=== PATIENT | female | born 1975 | race Caucasian/White ===

== ENCOUNTER 2019-12-08 07:15 | Inpatient (IN) | payer BC ==
[~2019-12-08 07:15] MED LIST: cefOXitin 2 GM Vial ONE
[2019-12-08] MEDS ORDERED: Scopolamine 1.5 MG Transdermal Patch TOP SCH (09:45)
[2019-12-08] MEDS ORDERED: Celecoxib 200 MG Cap PO ONE (09:45)
[2019-12-08] MEDS ORDERED: Dextrose 5%-Lactated Ringers 1,000 ML IV SCH ×2 (09:45→16:30)
[2019-12-08] MEDS ORDERED: Albuterol 8 GM Inhaler INH ONE (10:00)
[2019-12-08] MEDS ORDERED: fentaNYL 250 MCG/5 ML SDV ONE ×2 (10:38→13:30)
[2019-12-08] MEDS ORDERED: Ondansetron 4 MG/2 ML SDV ONE (10:39)
[2019-12-08] MEDS ORDERED: Succinylcholine 200 MG/10 ML MDV ONE (10:39)
[2019-12-08] MEDS ORDERED: Dexamethasone 4 MG/ML SDV ONE (10:39)
[2019-12-08] MEDS ORDERED: Propofol 200 MG/20 ML SDV ONE (10:39)
[2019-12-08] MEDS ORDERED: Neostigmine Methylsulfate 1 MG/ML 5 ML Syringe ONE (10:39)
[2019-12-08] MEDS ORDERED: Glycopyrrolate 0.2 MG/ML 5 ML MDV ONE (10:39)
[2019-12-08] MEDS ORDERED: Rocuronium 50 MG/5 ML Vial ONE (10:39)
[2019-12-08] MEDS ORDERED: Albuterol 8 GM Inhaler (PTOM) INH ONE (11:00)
[2019-12-08] MEDS ORDERED: Acetaminophen Soln 650 MG/20.3 ML UD Cup PO ONE (11:00)
[2019-12-08] MEDS ORDERED: Ondansetron 4 MG/2 ML SDV IVPUSH ONE (11:30)
[2019-12-08] MEDS ORDERED: Ketamine 500 MG/5 ML MDV IV SCH (11:30)
[2019-12-08] MEDS ORDERED: Ketamine 50 MG in Sodium Chloride 0.9% 49.5 ML IV SCH (11:30)
[2019-12-08] MEDS ORDERED: MAGNESIUM SULFATE IV ONE (12:00)
[2019-12-08] MEDS ORDERED: SODIUM CHLORIDE 0.9% IV ONE (12:00)
[2019-12-08] MEDS: cefOXitin 2 GM in Sodium Chloride 0.9% 50 ML IV ONE ×2 (12:29→12:42)
[2019-12-08] MEDS ORDERED: Labetalol 20 MG/4 ML Syringe ONE (14:26)
[2019-12-08] MEDS ORDERED: fentaNYL 100 MCG/2 ML SDV IVPUSH ONE (15:18)
[2019-12-08] MEDS ORDERED: hydrOXYzine HCL 100 MG/2 ML SDV IM ONE (15:18)
[2019-12-08] MEDS: Lactated Ringers 1,000 ML IV SCH (16:40)
[2019-12-08] MEDS: Cyclobenzaprine 10 MG Tab PO PRN (16:40)
[2019-12-08] MEDS ORDERED: HYDROmorphone 0.5 MG/0.5 ML Syringe IVPUSH PRN (16:48)
[2019-12-08] MEDS ORDERED: Insulin Lispro 100 Unit/ML 3 ML KwikPen SUBCUT PRN (17:00)
[2019-12-08] MEDS ORDERED: diphenhydrAMINE 50 MG/ML SDV IVPUSH PRN (17:00)
[2019-12-08] MEDS ORDERED: Labetalol 20 MG/4 ML Syringe IVPUSH PRN (17:00)
[2019-12-08] MEDS ORDERED: 50% Dextrose in Water 50 ML Syringe IVPUSH PRN (17:00)
[2019-12-08] MEDS ORDERED: Metoclopramide 10 MG/2 ML SDV IVPUSH PRN (17:00)
[2019-12-08] MEDS ORDERED: Albuterol/Ipratropium 3.0-0.5 MG/3 ML Neb Soln INH PRN (17:00)
[2019-12-08] MEDS ORDERED: Acetaminophen 500 MG Tab PO PRN (17:00)
[2019-12-08] MEDS ORDERED: Ondansetron 4 MG/2 ML SDV IVPUSH PRN (17:00)
[2019-12-08] MEDS ORDERED: Calcium Gluconate 10% 1 GM/10 ML SDV IVPUSH PRN (17:00)
[2019-12-08] MEDS ORDERED: hydrOXYzine HCL 100 MG/2 ML SDV IM PRN (17:00)
[2019-12-08] MEDS ORDERED: Glucagon,Human Recombinant 1 MG Vial IM PRN (17:00)
[2019-12-08] MEDS ORDERED: Pantoprazole 40 MG Vial IVPUSH SCH (18:00)
[2019-12-08] MEDS ORDERED: MVI, Adult with Vitamin K 10 ML, Thiamine 200 MG, Chromium/Copper/Mang/Selen/Zn 1 ML in... IV SCH ×4 (18:00)
[2019-12-08] MEDS: cefOXitin 2 GM in Sodium Chloride 0.9% 50 ML IV SCH (18:29)
[2019-12-08] MEDS: Heparin Sodium 5,000 Units/ML Vial SUBCUT SCH (20:51)
[2019-12-08] MEDS: Acetaminophen 500 MG Tab PO SCH ×2 (20:51→21:03)
[2019-12-08] MEDS: Albuterol/Ipratropium 3.0-0.5 MG/3 ML Neb Soln INH SCH (20:57)
[2019-12-09] MEDS: HYDROmorphone 1 MG/ML Syringe IV PRN ×3 (00:46→05:11)
[2019-12-09] MEDS: cefOXitin 2 GM in Sodium Chloride 0.9% 50 ML IV SCH ×4 (00:51→18:23)
[2019-12-09] MEDS: Acetaminophen 500 MG Tab PO SCH ×3 (05:11→19:33)
[2019-12-09] MEDS: Albuterol/Ipratropium 3.0-0.5 MG/3 ML Neb Soln INH SCH ×4 (07:45→21:30)
[2019-12-09] MEDS ORDERED: Ondansetron 4 MG Tab.DIS PO PRN (08:07)
[2019-12-09] MEDS ORDERED: ALPRAZolam 0.25 MG Tab PO PRN (08:19)
[2019-12-09] MEDS ORDERED: Albuterol 8 GM Inhaler INH PRN (08:19)
[2019-12-09] MEDS ORDERED: Pseudoephedrine 30 MG Tab PO PRN (08:19)
[2019-12-09] MEDS: Celecoxib 200 MG Cap PO SCH ×2 (08:55→21:29)
[2019-12-09] MEDS ORDERED: Lisinopril 20 MG Tab PO SCH (09:00)
[2019-12-09] MEDS ORDERED: Pantoprazole 40 MG Vial IVPUSH SCH (09:00)
[2019-12-09] MEDS ORDERED: SCOPOLAMINE PATCH CHECK TOP SCH (09:00)
[2019-12-09] MEDS ORDERED: Chlorthalidone 25 MG Tab PO SCH (09:00)
[2019-12-09] MEDS ORDERED: Citalopram 20 MG Tab PO SCH (09:00)
[2019-12-09] MEDS ORDERED: Venlafaxine 37.5 MG Cap.ER PO SCH (09:00)
[2019-12-09] MEDS: Levothyroxine 100 MCG Tab PO SCH (09:08)
[2019-12-09] MEDS: Cyclobenzaprine 10 MG Tab PO PRN ×2 (10:00→19:35)
--- NOTE | 2019-12-09 11:52 | CRLCR ---
INDICATION: Post bariatric surgery. TECHNIQUE: Two views of the abdomen and pelvis, 1 obtained immediately after drinking 50 mL of oral contrast, and the 2nd obtained approximately 15 minutes later. COMPARISON: None available. IMPRESSION: Free intraperitoneal air is presumably postsurgical in nature. On the initial image, contrast is seen in the distal esophagus, as well is in the gastric pouch in this patient who is status post presumed Fani-en-Y gastric bypass. Contrast is also seen in the proximal small bowel, just distal to the gastroenteric anastomosis. On this single frontal view, there is no convincing evidence of extraluminal contrast to suggest a leak or perforation. On the delayed image, contrast is seen within a small bowel loop in the left-side of the abdomen. Again, on this frontal view there is no convincing evidence of extraluminal contrast to suggest a leak or perforation. Surgical drain is noted in the left upper quadrant. Dictated by Alvarado Akbar MD @ Dec 09 2019 11:44AM Signed by Dr. Alvarado Akbar @ Dec 09 2019 11:50AM
[2019-12-09] MEDS: Heparin Sodium 5,000 Units/ML Vial SUBCUT SCH ×2 (11:54→19:35)
[2019-12-09] MEDS: hydrOXYzine HCl 25 MG Tab PO PRN ×2 (13:03→19:34)
--- NOTE | 2019-12-09 15:26 | PN ---
DATE OF SERVICE: 12/09/2019 SUBJECTIVE: Shellie is postop day 1. Her upper GI was normal. Vital signs have been stable. Pain has been controlled. She has no other questions or concerns. OBJECTIVE: GENERAL: Shellie Valverde is a pleasant 44-year-old female. She is alert and oriented. VITAL SIGNS: TPR is 96.7, 98, 16, blood pressure 123/71. HEENT: Negative. NECK: Supple. HEART: Regular rate and rhythm. LUNGS: Clear. ABDOMEN: Dressings dry and intact. Abdominal binder is on. LEXI drain put out 210 mL of a light pink drainage. EXTREMITIES: Without peripheral edema. ASSESSMENT: Laparoscopic gastric bypass surgery, liver biopsy, repair of paraesophageal diaphragmatic hernia, and excision of mediastinal lipoma. For morbid obesity, hepatomegaly, diaphragmatic hernia, and mediastinal lipoma. Date of procedure: 12/08/2019. Surgeon: Ronal Van MD PLAN: 1. Decrease IV of lactated Ringer's to 100 mL per hour. 2. Discontinue D5 LR. 3. Step 2 gastric bypass diet without cereal. 4. Discontinue Accu-Cheks. 5. Dressing off. May shower. 6. Zofran ODT 4 mg sublingual q.4 hours and p.r.n. nausea. 7. Home meds restarted. Effexor 37.5 mg p.o. daily. Will check with her primary care to see if they need to have that dose adjusted because of the extended release and there is no combination of medication that can be made. Pseudoephedrine 30 mg q.8 hours p.r.n. congestion, lisinopril 20 mg p.o. daily, levothyroxine 300 mcg p.o. daily, Celexa 40 mg p.o. daily, and chlorthalidone 25 mg p.o. daily. Communication order to drink 3 med cups one q.20 minutes equaling 3 an hour. Record at bedside to make sure to get in enough fluids. 8. We will evaluate p.r.n. or in a.m. Trish William PA-C /[id number]
[2019-12-09] MEDS ORDERED: Pantoprazole 40 MG Delayed-Release Granules 1 Packet PO SCH (16:00)
[2019-12-09] MEDS ORDERED: MVI, Adult with Vitamin K 10 ML, Thiamine 200 MG, Chromium/Copper/Mang/Selen/Zn 1 ML in... IV SCH ×8 (16:00→18:00)
[2019-12-10] MEDS: Lactated Ringers 1,000 ML IV SCH (02:52)
[2019-12-10] MEDS: Acetaminophen 500 MG Tab PO SCH (04:05)
[2019-12-10] MEDS: hydrOXYzine HCl 25 MG Tab PO PRN (07:47)
[2019-12-10] MEDS: Cyclobenzaprine 10 MG Tab PO PRN (07:48)
[2019-12-10] MEDS: Heparin Sodium 5,000 Units/ML Vial SUBCUT SCH (07:51)
[2019-12-10] MEDS: Levothyroxine 100 MCG Tab PO SCH (07:51)
[2019-12-10] MEDS: Albuterol/Ipratropium 3.0-0.5 MG/3 ML Neb Soln INH SCH (08:15)
[2019-12-10] MEDS ORDERED: Magnesium Hydroxide 400 MG/5 ML Susp 30 ML Cup PO ONE (09:00)
[2019-12-10] MEDS ORDERED: Cyanocobalamin (Vitamin B12) 1,000 MCG/ML SDV IM ONE (09:00)
--- NOTE | 2019-12-12 10:21 | DISCH ---
FINAL DIAGNOSES: 1. Morbid obesity. 2. Hepatomegaly. 3. Paraesophageal diaphragmatic hernia. 4. Mediastinal lipoma. 5. History of hypertension. 6. History of asthma. 7. Prediabetes. 8. History of depression. OPERATIVE PROCEDURE: Done on 12/07, diagnostic laparoscopy with: 1. Laparoscopic Fani-en-Y gastric bypass. 2. Eris-Cut needle liver biopsy. 3. Repair of paraesophageal diaphragmatic hernia. 4. Excision of mediastinal lipoma. SUMMARY: This is a 44-year-old female presenting with longstanding morbid obesity and increasingly significant comorbidities. After preoperative evaluation and discussion, she wished to proceed with a gastric bypass procedure, which was done on the date of admission along with the other procedures as outlined above. Postoperatively, she has had no significant problems. She is planning to avoid any narcotic, she will be sent home on her usual medications other than we will hold the Ozempic and measure her blood sugars t.i.d. and bring her log into the clinic. Her blood sugars over the last two days have been in the 130 to 140 range. Otherwise, she will be sent home with the Atarax 25 mg q.4 hours p.r.n. pain, #30, and Flexeril 10 mg p.o. q.8 hours p.r.n. muscle spasm, #30. These seem to be helping with regard to the discomfort and should be continuing on her Celebrex as well. Should be instructed to stay on a Step 2 diet until the first appointment as well as having her hold vitamin supplements until after the first appointment as well and then be following up with Trish William at [facility] on 12/16/2019.
--- NOTE | 2019-12-13 15:20 | OR ---
DATE OF PROCEDURE: 12/08/2019 SURGEON: Ronal Van MD PREOPERATIVE DIAGNOSIS: Morbid obesity. POSTOPERATIVE DIAGNOSES: 1. Morbid obesity. 2. Marked hepatomegaly. 3. Paraesophageal diaphragmatic hernia. 4. Mediastinal lipoma. OPERATIVE PROCEDURES: Diagnostic laparoscopy with: 1. Laparoscopic Fani-en-Y gastric bypass with long limb gastroenterostomy (07399). 2. Eris-Cut needle liver biopsy (12763). 3. Repair of paraesophageal diaphragmatic hernia (42623). 4. Excision of mediastinal lipoma ([id number]). ANESTHESIA: General. [facility] PROGRAM COORDINATOR: Trish William PA-C INDICATIONS FOR PROCEDURE: This is a 44-year-old female presenting with longstanding morbid obesity and increasingly significant comorbidities. After preoperative evaluation and discussion, she wished to proceed with a gastric bypass procedure. Potential risks of procedure including bleeding, infection, injury to underlying viscera, and leaks from various GI tract closures following bowel obstruction over time as well as possibility of cardiopulmonary, septic, or hemorrhagic complications leading to were discussed, and the patient wishes to proceed. DETAILS OF PROCEDURE: The patient was taken to the operating room, placed in a supine position. After general endotracheal anesthesia was induced, she was converted to a lithotomy position, and the abdomen prepped and draped. 15 cm inferior and 5 cm left of the xiphoid process, transverse incision was made, and peritoneal cavity entered under direct vision with an Optiview trocar, inflated to 15 mmHg of CO2. Laparoscope was then reinserted. No underlying trocar insertion site injuries were seen. Following this, 5 additional trocars were placed across the upper and mid abdomen, and bilateral transversus abdominis plane blocks were placed. Liver was evaluated and noted to be markedly enlarged and fatty infiltrated. Eris-Cut needle biopsies were obtained from left lobe of liver. Minimal bleeding from the biopsy sites was controlled with electrocautery. The omentum was then divided in the midline up to the level of the transverse colon. This allowed identification of the small bowel and ligament of Treitz. Small bowel was then traced out 150 cm distal to that point where it was divided transversely with AJRON stapler. Small bowel was then traced out an additional 150 cm where the [id number] enteroenterostomy was accomplished with internal firing of the Endo-JARON 60 mm stapler. Common opening was then closed transversely with the same stapler, and the angles anastomosed and mesenteric defect approximated with some 0 Ethibond stitch along with 4 mL of fibrin sealant. Divided end of Fani limb was then from the mesentery for a few centimeters, which allowed antecolic positioning of the Fani limb up to the level of the gastroesophageal junction without tension. The liver was then retracted anteriorly. The patient was noted to have a moderate-sized paraesophageal diaphragmatic hernia. This contained some omentum within it and some perigastric fat. This was reduced. The peritoneum overlying and was incised and reflected downward. During the course of the dissection, a mediastinal lipoma was encountered. This was excised to facilitate more adequate crural repair. Crura was then approximated anteriorly with 0 Ethibond sutures, reinforced with PTFE pledgets. The gastrointestinal balloon catheter was then inflated 15 mL and pulled up snugly against the EG junction. Gastric wall over the apex of the balloon was then marked with electrocautery and balloon catheter deflated and pulled up in the esophagus. The lesser omental tissue adjacent to the gastric cardia was incised allowing the dissection behind the gastric cardia. Pouch formation was initiated with transverse firing of the JARON stapler at the level of cauterized vinicius in the gastric cardia, and the pouch was then completed with additional firings of JARON stapler up to and through the angle of His. Upon completion of the pouch, both staple lines were noted to be intact. The anvil of a 25 mm EEA stapler was attached to a [place] sump-tube and brought down through the mouth and taken out through a small opening in the gastric pouch, allowing the anvil likewise to be pulled down to within the gastric pouch. The divided end of Fani limb was then opened, and main body of the EEA stapler passed several centimeters in the lumen of small bowel, brought up the anvil and united with it, thus creating the gastrojejunostomy. Upon removal of the stapler, double donuts of mucosa were noted within it. Small bowel was closed off with a vascular staple line. Gastrojejunostomy was reinforced with some 3-0 Vicryl seromuscular stitch along with fibrin sealant. A leak test was accomplished with injection of 120 mL of air in the gastric pouch while it was submerged with cefoxitin- containing saline solution. No leaks were identified. A single Frank-Robreto drain was taken out through the left lateral trocar site and positioned adjacent to the gastrojejunostomy, from there up into the splenic fossa. Trocars were then sequentially removed. Peritoneal cavity deflated. Incisions were closed with 4-0 Vicryl skin stitch, which was also used to affix the drain. The patient was taken to the recovery room in satisfactory condition. Physician sales assistant displays, Trish William, played an essential role in assisting in this case, helping to position the patient, retract structures as needed, and as well as suturing and cutting sutures when indicated. Her presence improved patient safety and decreased the operative time. Ronal Van MD /[id number]
== END 2019-12-10 10:15 | disposition home or self-care (01) | DRG 403 ==
LOC: EDSTATUS 07:15 → JP.SDS 09:48 → JP.MS 09:48
PROVIDERS: ADMIT Surgery; ATTEND Surgery
PROC: 0D164ZA Bypass Stomach to Jejunum, Percutaneous Endoscopic Approach (ICD-10-PCS; principal; 2019-12-08)
PROC: 0FB24ZX Excision of Left Lobe Liver, Percutaneous Endoscopic Approach, Diagnostic (ICD-10-PCS; 2019-12-08)
PROC: 0BQT4ZZ Repair Diaphragm, Percutaneous Endoscopic Approach (ICD-10-PCS; 2019-12-08)
PROC: 0JB63ZZ Excision of Chest Subcutaneous Tissue and Fascia, Percutaneous Approach (ICD-10-PCS; 2019-12-08)
DX: E66.01 Morbid (severe) obesity due to excess calories (principal); R16.0 Hepatomegaly, not elsewhere classified; K44.9 Diaphragmatic hernia without obstruction or gangrene; D17.1 Benign lipomatous neoplasm of skin and subcutaneous tissue of trunk; F32.9 Major depressive disorder, single episode, unspecified; R73.03 Prediabetes; J45.30 Mild persistent asthma, uncomplicated; I10 Essential (primary) hypertension; H65.191 Other acute nonsuppurative otitis media, right ear; Z68.43 Body mass index [BMI] 50.0-59.9, adult; Z90.49 Acquired absence of other specified parts of digestive tract; Z85.850 Personal history of malignant neoplasm of thyroid; Z79.890 Hormone replacement therapy; Z79.899 Other long term (current) drug therapy; Z88.5 Allergy status to narcotic agent; Z91.040 Latex allergy status; Z91.018 Allergy to other foods
CPT/HCPCS: 36415; 74240; 82962; 86850; 86900; 86901; 88304; 88305; 88307; 88313; 94640; 94762; A9270-GY; C9113; J0171; J0330; J0694; J1100; J1170; J1644; J1815; J2405; J2704; J2710; J2795; J3010; J3410; J3411; J3475; J3490; J7050; J7120; J7121; J7620-GY

== ENCOUNTER 2019-12-16 07:07 | Inpatient (IN) | payer BC ==
[2019-12-16] MEDS ORDERED: Famotidine 20 MG/2 ML SDV IV ONE (07:30)
--- NOTE | 2019-12-16 13:10 | US ---
Head Neck Soft Tissue Bi CLINICAL HISTORY: Left neck pain FINDINGS: Real-time images are obtained through the left neck were patient describes pain. Doppler images show normal flow in the jugular vein and carotid arteries. There is no mass or abnormal fluid collections. There is a small lymph node in the left neck which is nonspecific. IMPRESSION: No mass or abnormal fluid collections
--- NOTE | 2019-12-16 13:16 | NM ---
Lung Ventilation Only CLINICAL HISTORY: Elevated d-dimer, chest pain FINDINGS: Ventilation study was performed. Patient inhaled 1 mCi of technetium 99m DTPA via nebulizer. There is a uniform distribution of radionuclide throughout both lung hannon with no segmental or lobar defects. Perfusion study was attempted. The 4.1 mCi of technetium 99m MAA were attempted to be infused. The first attempt the infiltrated. A second attempt was performed with similar results. IMPRESSION: SALESPERSON FURNITURE lung scan was attempted Perfusion study was unsuccessful due to lack of venous access Normal ventilation scan
[2019-12-16] MEDS ORDERED: Acetaminophen 325 MG Tab PO PRN (13:22)
[2019-12-16] MEDS ORDERED: Acetaminophen 650 MG Supp RECTAL PRN (13:23)
[2019-12-16] MEDS ORDERED: Lactated Ringers 1,000 ML IV ONE (13:30)
[2019-12-16] MEDS ORDERED: Pantoprazole 40 MG Vial IV SCH (14:00)
[2019-12-16] MEDS ORDERED: Albuterol 8 GM Inhaler INH PRN (15:24)
[2019-12-16] MEDS ORDERED: ALPRAZolam 0.25 MG Tab PO PRN (15:24)
[2019-12-16] MEDS ORDERED: Pseudoephedrine 30 MG Tab PO PRN (15:24)
--- NOTE | 2019-12-16 15:45 | PCM.HP.2 ---
H&P History of Present Illness - General Date of Service: 12/16/19 Source of Information: Patient History Limitations: Reports: No Limitations - History of Present Illness Initial Comments - Free Text/Narative: Shellie states that on 12/14/2019 she started to develop more pain in her left trocar site and the area above it. States it feels like a bulge. Pain is a 3 - 4 /10 on a pain scale. Feels burpy. BMs are regular. No dyphagia. 2. Feel like a boa constrictor is around lower rib cage and is unable to take a deep breath without pain. feels short of breath. Unable to finish a sneeze. Not able to get her incentive inspirometer up to the level she got it a few days before. Coughing at night - her Mom states she can hear her in the next room. 3. Has a sore and swollen throat since surgery. reports that this happens everytime she is intubated and has to take Dexamethasone in order for the swelling to go down. States she discussed this with the anesthesia before surgery and he forgot to give her any. Liquids go down fine but pudding and yogurt go down slowly and hard to swallow. Has no other signs or symptoms. Shellie had a CT Scan of her Abdomen and it was negative. After her CT Scan she reported she was getting more short of breath and her chest hurt to take a deep breath. Kimberlyn Garza was 1860. Unable to do a CT Scan of Lungs to rule out PE because of allergy to iodine - patient stating "she ". Bilateral Doppler US of Legs was negative. Attempted to do a VQ Scan but both IVs infiltrated and contrast was insufficient to get an accurate test. Today Shellie reports "severe left shoulder pain". No one recalls her mentioning this yesterday but pain is severe a 8/10. She is holding her shoulder. Pain is so severe she states she is unable to walk because it takes her out at the knees. An US of her Left Shoulder and Neck was obtained to rule out any clot formation and it was negative. Consulted with Ronal Van MD and Wm Stanislaw DENIS in radiology and decision was to admit to hospital Give prophylactic treatment for allergic reaction to CT Contrast and do CT in the AM. Shellie was admitted to [facility]. - Related Data Allergies/Adverse Reactions: Allergies Allergy/AdvReac Type Severity Reaction Status Date / Time codeine Allergy Severe Anaphylactic Verified 12/16/19 12:30 Shock fish oil Allergy Severe Anaphylactic Verified 12/16/19 12:30 Shock hydrocodone Allergy Severe Anaphylactic Verified 12/16/19 12:30 Shock oxycodone Allergy Severe Anaphylactic Verified 12/16/19 12:30 Shock tomato Allergy Severe Anaphylactic Verified 12/16/19 12:30 Shock banana Allergy Hives Verified 12/16/19 12:30 iodine Allergy Hives Verified 12/16/19 12:30 ketorolac [From Toradol] Allergy Hives Verified 12/16/19 12:30 latex Allergy Rash Verified 12/16/19 12:30 javier flavor Allergy Hives Verified 12/16/19 12:30 povidone-iodine Allergy Hives Verified 12/16/19 12:30 sumatriptan Allergy Headache Verified 12/16/19 12:30 gluten AdvReac Nausea and Verified 12/16/19 12:30 Vomiting sodium chloride AdvReac Vomiting Verified 12/16/19 13:51 ALC-Bitter stop flavor Allergy Hives Uncoded 12/08/19 10:27 propyl glyco Home Medications: Home Meds ALPRAZolam [Alprazolam] 0.25 mg PO BID PRN 04/22/19 [History] Citalopram Hydrobromide [Celexa] 40 mg PO DAILY 04/22/19 [History] Albuterol Sulfate [Albuterol Sulfate Hfa] 1 - 2 puff INH Q4HR PRN 12/06/19 [History] Celecoxib [CeleBREX] 200 mg PO BID 12/06/19 [History] Chlorthalidone 25 mg PO DAILY 12/06/19 [History] Pseudoephedrine HCl [Sudafed] 30 mg PO Q8HR PRN 12/06/19 [History] Venlafaxine HCl [Venlafaxine ER] 37.5 mg PO DAILY 12/06/19 [History] lisinopriL [Lisinopril] 20 mg PO DAILY 12/06/19 [History] Levothyroxine Sodium [Tirosint] 300 mcg PO DAILY 12/08/19 [History] Rosuvastatin [Crestor] 10 mg PO DAILY 12/08/19 [History] Past Medical History HEENT History: Reports: Impaired Vision Cardiovascular History: Reports: High Cholesterol, Hypertension Respiratory History: Reports: Asthma, Bronchitis, Recurrent Gastrointestinal History: Reports: Celiac Disease Genitourinary History: Reports: None AIR CONDITIONING ENGINEER History: Reports: None Musculoskeletal History: Reports: Back Pain, Chronic, Fracture Neurological History: Reports: None Psychiatric History: Reports: Anxiety, Depression Endocrine/Metabolic History: Reports: Diabetes, Type II, Hypothyroidism, IDDM, Obesity/BMI 30+ Hematologic History: Reports: None Immunologic History: Reports: None Oncologic (Cancer) History: Reports: Thyroid Dermatologic History: Reports: None - Infectious Disease History Infectious Disease History: Reports: Chicken Pox - Past Surgical History HEENT Surgical History: Reports: None Cardiovascular Surgical History: Reports: None Respiratory Surgical History: Reports: None GI Surgical History: Reports: Cholecystectomy, Colonoscopy, EGD Female Surgical History: Reports: Hysterectomy, Salpingo-Oophorectomy Endocrine Surgical History: Reports: Thyroidectomy Musculoskeletal Surgical History: Reports: Arthroscopic Knee, Other (See Below) Other Musculoskeletal Surgeries/Procedures:: repair muscle right leg Oncologic Surgical History: Reports: None, Mastectomy Social & Family History - Family History HEENT: Reports: None Cardiac: Reports: Heart Failure, Other (See Below) Other Cardiac Family History: mitral valve prolapse Respiratory: Reports: COPD GI: Reports: Celiac Disease : Reports: None Musculoskeletal: Reports: RA Neurological: Reports: None Psychiatric: Reports: Anxiety, Depression Endocrine/Metabolic: Reports: Diabetes, type II, Hypothyroidism Hematologic: Reports: None Immunologic: Reports: None Dermatologic: Reports: None Oncologic: Reports: Other (See Below) Other Oncologic Family History: multiple myeloma - Tobacco Use Tobacco Use Status *Q: Never Tobacco User - Caffeine Use Caffeine Use: Reports: None - Recreational Drug Use Recreational Drug Use: No H&P Review of Systems - Review of Systems: Review Of Systems: See Below General: Reports: Weakness, Fatigue HEENT: Reports: No Symptoms Pulmonary: Reports: Shortness of Breath, Cough (at night) Cardiovascular: Reports: Chest Pain (when taking a deep breath. ), Dyspnea on Exertion Gastrointestinal: Reports: Abdominal Pain (left upper quadrant but didn't mention it today. ) Genitourinary: Reports: No Symptoms Musculoskeletal: Reports: Neck Pain (left ), Shoulder Pain (left ) Skin: Reports: No Symptoms Psychiatric: Reports: No Symptoms Neurological: Reports: No Symptoms Hematologic/Lymphatic: Reports: No Symptoms Immunologic: Reports: No Symptoms Exam - Exam Exam: See Below - Vital Signs Vital Signs: Last Vital Signs Temp 98.4 F 12/16/19 12:44 Pulse 98 12/16/19 12:44 Resp 18 12/16/19 12:44 BP 145/88 H 12/16/19 12:44 Pulse Ox 98 12/16/19 12:44 Weight: 304 lb - Exam Quality Assessment: DVT Prophylaxis General: Alert, Oriented, Cooperative, Mild Distress HEENT: PERRLA Neck: Supple, Trachea Midline Lungs: Clear to Auscultation, Normal Respiratory Effort Cardiovascular: Regular Rate, Regular Rhythm GI/Abdominal Exam: Other (incisions look good. mild tenderness to palpation above left upper incision. ) (Female) Exam: Deferred Rectal (Female) Exam: Deferred Back Exam: Normal Inspection, Full Range of Motion Extremities: Normal Inspection, Normal Range of Motion, Non-Tender, No Pedal Edema Skin: Warm, Dry, Intact Neurological: Cranial Nerves Intact, Reflexes Equal Bilateral Neuro Extensive - Mental Status: Alert, Oriented x3, Normal Mood/Affect Neuro Extensive - Motor, Sensory, Reflexes: CN II-XII Intact Psychiatric: Alert, Normal Affect, Normal Mood Sepsis Event Note - Focused Exam Vital Signs: Vital Signs Temp Pulse Pulse Resp BP Pulse Ox 12/16/19 12:44 98.4 F 98 18 145/88 H 98 12/16/19 12:22 97.1 F 98 18 145/88 H 99 - Problem List (1) Shortness of breath SNOMED Code(s): 549968931 ICD Code: R06.02 - SHORTNESS OF BREATH Status: Acute Current Visit: Yes (2) Elevated d-dimer SNOMED Code(s): 675776954 ICD Code: R79.89 - OTHER SPECIFIED ABNORMAL FINDINGS OF BLOOD CHEMISTRY Status: Acute Current Visit: Yes (3) Left shoulder pain SNOMED Code(s): 20943512, 53638051 ICD Code: M25.512 - PAIN IN LEFT SHOULDER Status: Acute Current Visit: Yes Problem List Initiated/Reviewed/Updated: Yes Orders Last 24hrs: Active Orders 24 hr Category Date Time Status Activity as Tolerated [RC] .Routine Care 12/16/19 13:34 Active Communication Order [RC] Click to Edit Care 12/16/19 13:37 Active RT Post Treatment Assessment [RC] Click to Edit Care 12/16/19 15:26 Active Vital Signs [RC] Q4H Care 12/16/19 13:34 Active Bariatric Diet [DIET] Diet 12/16/19 Dinner Active Nothing per Oral After Midnight Diet [DIET] Diet 12/16/19 Dinner Active Chest w Cont [CT] Routine Exams 12/17/19 08:00 Ordered CBC W/O DIFF,HEMOGRAM [HEME] Routine Lab 12/17/19 04:00 Ordered COMPREHENSIVE METABOLIC PN,CMP [CHEM] Routine Lab 12/17/19 04:00 Ordered MAGNESIUM [CHEM] Routine Lab 12/17/19 04:00 Ordered PHOSPHORUS [CHEM] Routine Lab 12/17/19 04:00 Ordered ALPRAZolam [Xanax] Med 12/16/19 15:24 Ordered 0.25 mg PO BID PRN Acetaminophen [TylenoL] Med 12/16/19 13:22 Active 650 mg PO Q4H PRN Acetaminophen [Tylenol] Med 12/16/19 13:23 Active 650 mg RECTAL Q4H PRN Albuterol [Ventolin HFA] Med 12/16/19 15:24 Ordered DOSE gm INH Q4HR PRN Celecoxib [CeleBREX] Med 12/16/19 21:00 Ordered 200 mg PO BID Chlorthalidone Med 12/17/19 09:00 Ordered 25 mg PO DAILY Citalopram Hydrobromide [Celexa] Med 12/17/19 09:00 Ordered 40 mg PO DAILY Dextrose 5%-Lactated Ringers 1,000 ml Med 12/17/19 00:00 Active IV ASDIRECTED Famotidine [Pepcid] 40 mg Med 12/17/19 07:15 Active Dextrose 5% in Water 100 ml IV ONETIME Hydrocortisone Sod Succinate [Solu-CORTEF] Med 12/17/19 04:00 Active 200 mg IV Q4H Levothyroxine Sodium [Tirosint] Med 12/17/19 09:00 Ordered 300 mcg PO DAILY MVI, Adult with Vitamin K [Infuvite Adult] 10 ml Med 12/16/19 16:30 Active Chromium/Copper/Lyndon/Selen/Zn [Multitrace-5 Concentrate ] 1 ml Thiamine [Vitamin B-1] 200 mg Dextrose 5%-Lactated Ringers 1,000 ml IV ONETIME Pantoprazole [ProTONIX] Med 12/16/19 15:00 Active 40 mg PO ACBREAKFAST Pseudoephedrine [Sudogest] Med 12/16/19 15:24 Ordered 30 mg PO Q8HR PRN Rosuvastatin [Crestor] Med 12/17/19 09:00 Ordered 10 mg PO DAILY Venlafaxine [Effexor XR] Med 12/17/19 09:00 Ordered 37.5 mg PO DAILY diphenhydrAMINE [Benadryl] Med 12/17/19 07:00 Once 50 mg IVPUSH ONETIME ONE lisinopriL [Prinivil] Med 12/17/19 09:00 Ordered 20 mg PO DAILY SCD [Sequential Compression Device] [OM.PC] Routine Oth 12/16/19 13:36 Ordered Medication Orders Acetaminophen (Tylenol) 650 mg PO Q4H PRN PRN Reason: ANALGESIA/FEVER Acetaminophen (Tylenol) 650 mg RECTAL Q4H PRN PRN Reason: ANALGESIA/FEVER Albuterol (Ventolin Hfa) gm INH Q4HR PRN PRN Reason: Shortness of Breath Alprazolam (Xanax) 0.25 mg PO BID PRN PRN Reason: Anxiety Celecoxib (Celebrex) 200 mg PO BID SUMMER Chlorthalidone (Chlorthalidone) 25 mg PO DAILY SUMMER Diphenhydramine HCl (Benadryl) 50 mg IVPUSH ONETIME ONE Stop: 12/17/19 07:01 Hydrocortisone Sodium Succinate (Solu-Cortef) 200 mg IV Q4H SUMMER Stop: 12/17/19 08:01 Dextrose/Lactated Ringer's (Dextrose 5%-Lactated Ringers) 1,000 mls @ 125 mls/hr IV ASDIRECTED SUMMER Multivitamins/Minerals 10 ml/Chromium/Copper/Manganese/Seleni/Zn 1 ml/ Thiamine HCl 200 mg/ Dextrose/Lactated Ringer's 1,013 mls @ 125 mls/hr IV ONETIME ONE Stop: 12/17/19 00:36 Famotidine 40 mg/ Dextrose/ (Water) 104 mls @ 200 mls/hr IV ONETIME ONE Stop: 12/17/19 07:46 Lisinopril (Prinivil) 20 mg PO DAILY SUMMER Non-Formulary Medication (Citalopram Hydrobromide [Celexa]) 40 mg PO DAILY SUMMER Non-Formulary Medication (Levothyroxine Sodium [Tirosint]) 300 mcg PO DAILY SUMMER Pantoprazole Sodium (Protonix) 40 mg PO ACBREAKFAST SUMMER Pseudoephedrine HCl (Sudogest) 30 mg PO Q8HR PRN PRN Reason: Congestion Rosuvastatin Calcium (Crestor) 10 mg PO DAILY SUMMER Venlafaxine HCl (Effexor Xr) 37.5 mg PO DAILY SUMMER Assessment: Short of Breath Elevated Ddiemer Left Shoulder pain SP Gastric Bypass 12/08/2019 Helicobacter Pylori Biopsy Positive Asthma Papillary Carcinoma of Thyroid History of Major Depression Plan: Admit as Inpatient Plan of Hospitalization 2 nights and 3 days - pending results of CT Scan See EMR for copy of the rest of the orders. Trish ENRIQUEZ C - Mortality Measure Prognosis:: Good
[2019-12-16] MEDS ORDERED: MVI, Adult with Vitamin K 10 ML, Thiamine 200 MG, Chromium/Copper/Mang/Selen/Zn 1 ML in... IV ONE ×4 (15:58)
[2019-12-16] MEDS: Pantoprazole 40 MG Tab.CR PO SCH (16:20)
[2019-12-16] MEDS ORDERED: MVI, Adult with Vitamin K 10 ML, Chromium/Copper/Mang/Selen/Zn 1 ML, Thiamine 200 MG in... IV ONE ×4 (16:30)
[2019-12-16] MEDS ORDERED: Cyclobenzaprine 10 MG Tab PO PRN (20:29)
[2019-12-16] MEDS ORDERED: hydrOXYzine HCl 25 MG Tab PO PRN (20:30)
[2019-12-16] MEDS: Celecoxib 200 MG Cap PO SCH (20:45)
[2019-12-17] MEDS ORDERED: Dextrose 5%-Lactated Ringers 1,000 ML IV SCH
[2019-12-17] MEDS: Hydrocortisone Sodium Succinate 100 MG/2 ML SDV IV SCH ×2 (04:08→08:03)
[2019-12-17] MEDS ORDERED: HYDROmorphone 0.5 MG/0.5 ML Syringe IVPUSH PRN (05:01)
[2019-12-17] MEDS ORDERED: diphenhydrAMINE 50 MG/ML SDV IVPUSH ONE (07:00)
[2019-12-17] MEDS ORDERED: FAMOTIDINE IV ONE ×2 (07:15)
[2019-12-17] MEDS ORDERED: WATER IV ONE ×2 (07:15)
[2019-12-17] MEDS ORDERED: DEXTROSE 5% IV ONE ×2 (07:15)
[2019-12-17] MEDS ORDERED: Levothyroxine 100 MCG Tab PO SCH (07:30)
[2019-12-17] MEDS ORDERED: LORazepam 2 MG/ML SDV IVPUSH ONE (07:32)
[2019-12-17] MEDS ORDERED: Lactated Ringers 500 ML IV SCH (07:45)
[2019-12-17] MEDS ORDERED: Iopamidol 755 Mg/ML 100 ML Bottle IV SCH (08:00)
[2019-12-17] MEDS ORDERED: Dextrose 5% in Water 100 ML IV SCH (08:00)
[2019-12-17] MEDS ORDERED: Chlorthalidone 25 MG Tab PO SCH (09:00)
[2019-12-17] MEDS ORDERED: Citalopram 20 MG Tab PO SCH (09:00)
[2019-12-17] MEDS ORDERED: Lisinopril 20 MG Tab PO SCH (09:00)
[2019-12-17] MEDS ORDERED: Venlafaxine 37.5 MG Cap.ER PO SCH (09:00)
[2019-12-17] MEDS ORDERED: Rosuvastatin 10 MG Tab PO SCH (09:00)
--- NOTE | 2019-12-17 09:07 | CRLCT ---
INDICATION: Chest pain. TECHNIQUE: CT pulmonary angiogram with 100 cc of Isovue-370 given intravenously. FINDINGS: No pulmonary emboli. No aneurysmal dilatation or dissection of the thoracic aorta. No mediastinal or hilar adenopathy. No axillary adenopathy. Bilateral mastectomies. The lungs show mild bibasilar atelectasis. No pneumothorax. No focal abnormalities identified in the visualized portions of the liver, spleen, and adrenal glands. Postsurgical changes of the stomach. Degenerative changes of the spine. IMPRESSION: 1. No pulmonary emboli. 2. Mild bibasilar atelectasis. Dictated by Derrek Reyes MD @ 12/17/2019 9:06:28 AM Please note that all CT scans at this facility use dose modulation, iterative reconstruction, and/or weight-based dosing when appropriate to reduce radiation dose to as low as reasonably achievable. Dictated by: Derrek Reyes MD @ 12/17/2019 09:06:35 (Electronically Signed)
[2019-12-17] MEDS: Pantoprazole 40 MG Tab.CR PO SCH (12:00)
[2019-12-17] MEDS: Celecoxib 200 MG Cap PO SCH (12:01)
--- NOTE | 2020-01-16 07:40 | DISCH ---
FINAL DIAGNOSES: 1. Upper abdominal and left shoulder pain, status post Fani-en-Y gastric bypass. 2. Status post laparoscopic Fani-en-Y gastric bypass on 12/08/2019. 3. Postoperative dysphagia. SUMMARY: This is a 44-year-old status post laparoscopic Fani-en-Y gastric bypass on 12/08/2019. She presents now with increasing complaints of pain in the left trocar site with some bulging area that otherwise appeared to be relatively unremarkable. She complained of some dysphagia related to the intubation with some sore throat since the time of surgery and some left shoulder pain and sense of shortness of breath. A D-dimer was obtained which was 1860, which at this point would be nonspecific of the recent surgery. She was allergic to IV contrast. She initially deferred doing a CT scan of the lungs. She was admitted overnight and a V/Q scan was obtained. Only the ventilator component of the V/Q scan could be completed due to IV access issues. We did obtain an ultrasound of the shoulder to rule-out cooperation in the subclavian axillary vessels which was identified. We discussed the case with Dr. Dover of Radiology Department and at this point, we decided to pre-treat the patient on CT angiography to rule out pulmonary embolism. The patient was given a combination of Solu-Medrol, Benadryl, and Pepcid prior to the procedure and had no significant reaction. The CT scan showed no evidence of pulmonary embolism and some mild bibasilar atelectasis. It would be most likely of the patient's discomfort as related to the recent significant area of the left diaphragm which included repair of paraesophageal hernia along with the gastric bypass with a small gastric pouch with reassurance. The patient will resume a step-2 diet without difficulty and she will be discharged home. She will continue her home medications including Celebrex and Tylenol as needed for discomfort, and she will be following up with Trish William in [facility] next week sutures were removed from the incision prior to discharge. /[id number]
== END 2019-12-17 12:23 | disposition home or self-care (01) | DRG 861 ==
LOC: JP.NM 07:07 → UNDOADMIN 11:58 → JP.ICU 11:58
PROVIDERS: ADMIT Physician Assistant Medical; ATTEND Physician Assistant Medical
DX: G89.18 Other acute postprocedural pain (principal); R10.10 Upper abdominal pain, unspecified; R06.02 Shortness of breath; R07.9 Chest pain, unspecified; M25.512 Pain in left shoulder; R13.19 Other dysphagia; J02.9 Acute pharyngitis, unspecified; H54.7 Unspecified visual loss; R79.1 Abnormal coagulation profile; E78.00 Pure hypercholesterolemia, unspecified; I10 Essential (primary) hypertension; J45.909 Unspecified asthma, uncomplicated; K90.0 Celiac disease; G89.29 Other chronic pain; M54.9 Dorsalgia, unspecified; F41.9 Anxiety disorder, unspecified; F32.9 Major depressive disorder, single episode, unspecified; E11.9 Type 2 diabetes mellitus without complications; E03.9 Hypothyroidism, unspecified; E66.9 Obesity, unspecified; Z85.850 Personal history of malignant neoplasm of thyroid; Z90.49 Acquired absence of other specified parts of digestive tract; Z98.84 Bariatric surgery status; Z91.041 Radiographic dye allergy status; Z88.5 Allergy status to narcotic agent; Z91.018 Allergy to other foods; Z88.8 Allergy status to other drugs, medicaments and biological substances; Z79.890 Hormone replacement therapy; Z79.899 Other long term (current) drug therapy; Z90.710 Acquired absence of both cervix and uterus
CPT/HCPCS: 36415; 71275; 76536; 76536-26; 78579; 78579-26; 80053; 83735; 84100; 85027; 94762; A9270-GY; A9539; J1170; J1200; J1720; J2060; J3411; J3490; J7060; J7120; J7121; Q9967